=== PATIENT | female | born 1980 | race African-American/Black ===

== ENCOUNTER 2016-09-13 06:30 | Observation (INO) | payer MEDICAID ==
[~2016-09-13] VITALS: Ht 167.6 cm; Wt 80.0 kg
[~2016-09-13 06:30] MED LIST: ALBU0.63 NEB; IBUP800T23 PO; OMEP20TA PO; ZOFR4TAB PO
[2016-09-13 06:31] VITALS: BP 114/67; PULSE 88; RESP 18; TEMP 98.2; O2SAT 96
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
[2016-09-13] MEDS ORDERED: SODIUM CHLORIDE 0.9% FLUSH 10 ML FLUSH IVF PRN ×2 (07:15→08:15)
[2016-09-13] MEDS ORDERED: ASPIRIN 81 MG CHEW TAB PO ONE (07:15)
[2016-09-13] MEDS ORDERED: NITROGLYCERIN 2% OINT 1 GM PACKET TOP ONE (07:15)
[2016-09-13] MEDS ORDERED: NITROGLYCERIN 0.4 MG SL 25 TABS/BTL SL ONE (07:15)
[2016-09-13] MEDS ORDERED: MORPHINE SULFATE 4 MG/ML INJ IV PUSH ONE (07:15)
[2016-09-13] MEDS ORDERED: methylPREDNISolone SOD SUCC 125 MG/2 ML VIAL IVP ONE (07:15)
[2016-09-13 07:23] LABS: AUTOMATED NEUTROPHIL # 3.4 TH/MM3 (1.8-7.7); BASOPHIL % 0.5 % (0.0-2.0); EOSINOPHIL # 0.1 TH/MM3 (0-0.4); EOSINOPHIL % 1.2 % (0.0-4.0); HEMATOCRIT 39.1 % (35.0-46.0); HEMO FLAGS DIFF FINAL; LYMPH % 30.9 % (9.0-44.0); LYMPHOCYTE # 1.7 TH/MM3 (1.0-4.8); MEAN CELL VOLUME 90.6 FL (80.0-100.0); MEAN CORPUSCULAR HEMOGLOBIN 30.3 PG (27.0-34.0); MEAN CORPUSCULAR HGB CONC 33.5 % (32.0-36.0); MONO % 7.8 % (0.0-8.0); NEUT % 59.6 % (16.0-70.0); PLATELET COUNT 107 TH/MM3 (150-450); RED BLOOD COUNT 4.31 MIL/MM3 (4.00-5.30); RED CELL DISTRIBUTION WIDTH 14.9 % (11.6-17.2); WHITE BLOOD COUNT 5.7 TH/MM3 (4.0-11.0)
[2016-09-13] MEDS: RESP: ALBUTEROL 2.5 MG/3 ML NEB (SCH) INH ×2 (07:27→07:28)
[2016-09-13 07:31] VITALS: BP 114/67; PULSE 87; RESP 18; RESP 20; O2SAT 98
[2016-09-13 07:31] LABS: INTERNATIONAL NORMALIZED RATIO 0.9 RATIO; PROTHROMBIN TIME - PATIENT 10.1 SEC (9.8-11.6)
[2016-09-13 07:35] LABS: APTT (PATIENT) 28.8 SEC (24.3-30.1)
[2016-09-13] MEDS ORDERED: cefTRIAXone INJ 1,000 MG in SODIUM CHLORIDE 0.9% INJ 100 ML IV ONE (08:15)
[2016-09-13] MEDS ORDERED: AZITHROMYCIN 250 MG TAB PO ONE (08:15)
[2016-09-13 08:20] LABS: ANION GAP 9 MEQ/L (5-15); AST (GOT) 25 U/L (15-37); BICARBONATE 20.6 MEQ/L (21.0-32.0); BLOOD UREA NITROGEN 11 MG/DL (7-18); CHLORIDE 111 MEQ/L (98-107); GLOMERULAR FILTRATION RATE 97 ML/MIN (>89); MAGNESIUM 1.9 MG/DL (1.5-2.5); SODIUM (NA) 141 MEQ/L (136-145)
--- NOTE | 2016-09-13 08:24 | RADRPT ---
EXAM DATE/TIME: 09/13/2016 07:27 [facility] COMPARISON: CHEST SINGLE AP, January 18, 2016, 16:09. INDICATIONS : Midsternal chest pains, prior heart valve replacement. MEDICAL HISTORY : Myocardial infarction. SURGICAL HISTORY : Valve replacement ENCOUNTER: Initial ACUITY: 1 day PAIN SCORE: 10/10 LOCATION: Bilateral chest FINDINGS: A single portable frontal view of the chest shows a parenchymal consolidation within the right lung b ase. Left lung is clear. No effusions. Heart is normal in size. Median sternotomy wires and prostheti c aortic valve noted. CONCLUSION: 1. Right lower lobe infiltrate. Carlitos Ring Jr., MD on September 13, 2016 at 8:21 Board Certified Radiologist. This report was verified electronically.
[2016-09-13 08:26] LABS: ALKALINE PHOSPHATASE 66 U/L (45-117); ALT (GPT) 19 U/L (10-53); CREATINE KINASE 255 U/L (26-192); TOTAL BILIRUBIN ADULT 0.2 MG/DL (0.2-1.0)
[2016-09-13 08:38] LABS: CKMB 3.7 NG/ML (0.5-3.6)
[2016-09-13 08:49] LABS: AMPHETAMINE, URINE NEG (NEG); BARBITURATES, URINE NEG (NEG); COCAINE, URINE POS (NEG)
[2016-09-13] MEDS ORDERED: SODIUM CHLOR 0.9% 1000 ML INJ 1,000 ML IV SCH (09:37)
[2016-09-13] MEDS ORDERED: SODIUM CHLORIDE 0.9% FLUSH 10 ML FLUSH IV FLUSH PRN (09:45)
[2016-09-13] MEDS ORDERED: NALOXONE HCL 0.4 MG/ML AMP IV PRN (09:45)
[2016-09-13] MEDS ORDERED: ENOXAPARIN SODIUM 40 MG/0.4 ML SYRINGE SQ SCH (09:45)
--- NOTE | 2016-09-13 10:21 | EKG ---
Date Performed: 09/13/2016 Time Performed: 06:31:33 PTAGE: 36 years EKG: Sinus rhythm NONSPECIFIC T-WAVE ABNORMALITY BORDERLINE ECG PREVIOUS TRACING : 01/19/2016 15.10 DOCTOR: Pradip Odom Interpretating Date/Time 09/13/2016 10:18:14
[2016-09-13] MEDS: RESP: ALBUTEROL 2.5 MG/IPRATROPIUM 0.5 MG NEB (SCH) NEB ×2 (10:24→17:01)
[2016-09-13 10:25] VITALS: O2SAT 99
[2016-09-13] MEDS ORDERED: ACETAMINOPHEN 325 MG TAB PO PRN (11:45)
[2016-09-13 12:00] VITALS: BP 121/69; PULSE 90; RESP 18; O2SAT 97
[2016-09-13] MEDS ORDERED: PANTOPRAZOLE SOD 40 MG DELAYED RELEASE TAB PO SCH (12:00)
[2016-09-13 12:01] LABS: REVIEW FLAG FINAL
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
[2016-09-13 13:31] VITALS: BP 115/68; PULSE 95; RESP 18; TEMP 97; O2SAT 100
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
[2016-09-13] MEDS ORDERED: LIDO5DIS35 T-DERMAL (14:47)
[2016-09-13] MEDS ORDERED: LEVO750T33 PO (14:47)
[2016-09-13] MEDS ORDERED: PANT40TA3 PO (14:47)
[2016-09-13] MEDS ORDERED: LIDOCAINE HCL 5% PATCH T-DERMAL SCH (15:00)
[2016-09-13 16:00] VITALS: BP 107/60; PULSE 86; RESP 18; TEMP 96.7; O2SAT 97
[2016-09-13] MEDS ORDERED: SODIUM CHLORIDE 0.9% FLUSH 10 ML FLUSH IV FLUSH SCH (21:00)
[2016-09-13] MEDS ORDERED: predniSONE 20 MG TAB PO SCH (21:00)
[2016-09-13] MEDS ORDERED: REMOVE OLD LIDOCAINE PATCH T-DERMAL SCH (21:00)
[2016-09-14] MEDS ORDERED: cefTRIAXone INJ 1,000 MG in SODIUM CHLORIDE 0.9% INJ 100 ML IV SCH (09:00)
[2016-09-14] MEDS ORDERED: AZITHROMYCIN 250 MG TAB PO SCH (09:00)
[2016-09-14] MEDS ORDERED: INFLUENZA VIRUS VACCINE (QUADRIVALENT) 0.5 ML SYR IM ONE (10:00)
== END 2016-09-13 17:20 | disposition home or self-care (01) ==
LOC: NEPE 06:30 → NEDA 09:39 → NEPGCP 13:06
PROVIDERS: ADMIT Internal Medicine; ATTEND Internal Medicine
DX: R07.89 Other chest pain (principal); K62.5 Hemorrhage of anus and rectum; E11.9 Type 2 diabetes mellitus without complications; Z79.01 Long term (current) use of anticoagulants; I10 Essential (primary) hypertension; J45.909 Unspecified asthma, uncomplicated; Z86.718 Personal history of other venous thrombosis and embolism; Z85.41 Personal history of malignant neoplasm of cervix uteri; F17.200 Nicotine dependence, unspecified, uncomplicated; J18.9 Pneumonia, unspecified organism; Z95.2 Presence of prosthetic heart valve; K21.9 Gastro-esophageal reflux disease without esophagitis; F14.10 Cocaine abuse, uncomplicated; F12.10 Cannabis abuse, uncomplicated; Z91.19 Patient's noncompliance with other medical treatment and regimen; Z88.8 Allergy status to other drugs, medicaments and biological substances
CPT/HCPCS: 71010; 80053; 80307; 82550; 82552; 83735; 83880; 84484; 84703; 85014; 85018; 85025; 85049; 85379; 85610; 85730; 93005; 94150; 94640; 94664; 94667; 96374; 96375; 99285; G0378; J0696; J2270; J2930; J7030; J7613

== ENCOUNTER 2016-12-18 20:52 | Emergency (ER) | payer MEDICAID ==
[~2016-12-18] VITALS: Ht 167.6 cm; Wt 80.0 kg
[~2016-12-18 20:52] MED LIST changes: -IBUP800T23 PO; +LEVO750T33 PO; +LIDO5DIS35 T-DERMAL; +PANT40TA3 PO
[2016-12-18 20:54] VITALS: BP 116/64; PULSE 102; RESP 16; TEMP 98.7; O2SAT 97
[2016-12-18] MEDS ORDERED: SODIUM CHLOR 0.9% 1000 ML INJ 1,000 ML IV SCH (22:03)
[2016-12-18] MEDS ORDERED: ONDANSETRON HCL 4 MG/2 ML VIAL IVP ONE (22:15)
[2016-12-18] MEDS ORDERED: MORPHINE SULFATE 8 MG/ML INJ IV PUSH ONE (22:15)
[2016-12-18] MEDS ORDERED: SODIUM CHLORIDE 0.9% FLUSH 10 ML FLUSH IV FLUSH PRN (22:15)
[2016-12-18 22:32] VITALS: O2SAT 94
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
[2016-12-18 22:58] LABS: BASOPHIL % 0.2 % (0.0-2.0); EOSINOPHIL # 0.1 TH/MM3 (0-0.4); EOSINOPHIL % 2.2 % (0.0-4.0); HEMATOCRIT 41.1 % (35.0-46.0); HEMO FLAGS DIFF FINAL; LYMPH % 37.9 % (9.0-44.0); LYMPHOCYTE # 2.3 TH/MM3 (1.0-4.8); MEAN CELL VOLUME 90.5 FL (80.0-100.0); MEAN CORPUSCULAR HEMOGLOBIN 29.8 PG (27.0-34.0); MEAN CORPUSCULAR HGB CONC 32.9 % (32.0-36.0); MONO % 10.1 % (0.0-8.0); NEUT % 49.6 % (16.0-70.0); PLATELET COUNT 132 TH/MM3 (150-450); RED BLOOD COUNT 4.55 MIL/MM3 (4.00-5.30); RED CELL DISTRIBUTION WIDTH 14.1 % (11.6-17.2)
[2016-12-18 23:15] LABS: ALT (GPT) 17 U/L (10-53)
[2016-12-18 23:17] LABS: ALKALINE PHOSPHATASE 82 U/L (45-117); ANION GAP 6 MEQ/L (5-15); AST (GOT) 26 U/L (15-37); BICARBONATE 27.3 MEQ/L (21.0-32.0); BLOOD UREA NITROGEN 18 MG/DL (7-18); CHLORIDE 106 MEQ/L (98-107); GLOMERULAR FILTRATION RATE 65 ML/MIN (>89); POTASSIUM 3.9 MEQ/L (3.5-5.1); SODIUM (NA) 139 MEQ/L (136-145); TOTAL BILIRUBIN ADULT 0.2 MG/DL (0.2-1.0)
[2016-12-18 23:25] LABS: BLOOD, URINE MOD (NEG); GLUCOSE,URINE NEG (NEG); KETONE, URINE NEG (NEG); NITRITE,URINE NEG (NEG); SQUAMOUS EPITHELIAL CELL URINE 5 /hpf (0-5); URINE COLOR YELLOW (YELLW/STRAW)
[2016-12-18 23:35] LABS: COMMENT (UR) CULT NOT INDICATED; CULTURE IF INDICATED CULT NOT INDICATED
[2016-12-19] MEDS ORDERED: MORPHINE SULFATE 8 MG/ML INJ IV PUSH ONE (00:15)
[2016-12-19] MEDS ORDERED: HYDR-3533 PO (00:44)
[2016-12-19] MEDS ORDERED: DEXAMETHASONE SOD PHOS 4 MG/ML VIAL IV PUSH ONE (00:45)
== END 2016-12-19 01:41 | disposition home or self-care (01) ==
LOC: NEPD 20:52
DX: R10.9 Unspecified abdominal pain (principal); M25.50 Pain in unspecified joint
CPT/HCPCS: 80053; 81001; 85025; 96361; 96374; 96375; 96376; 99284; J1100; J2270; J2405; J7030

== ENCOUNTER 2017-01-05 10:16 | Emergency (ER) | payer MEDICAID ==
[~2017-01-05] VITALS: Ht 167.6 cm; Wt 80.0 kg
[~2017-01-05 10:16] MED LIST changes: +HYDR-3533 PO; -LEVO750T33 PO; -LIDO5DIS35 T-DERMAL; -PANT40TA3 PO
[2017-01-05 10:21] VITALS: BP 115/77; PULSE 114; RESP 17; TEMP 98.2; O2SAT 99
[2017-01-05] MEDS ORDERED: HEART RATE MED (10:52)
[2017-01-05] MEDS ORDERED: DEXAMETHASONE SOD PHOS 4 MG/ML VIAL IM ONE (11:00)
[2017-01-05] MEDS ORDERED: IBUPROFEN 600 MG TAB PO ONE (11:00)
[2017-01-05] MEDS ORDERED: SODIUM CHLORIDE 0.9% FLUSH 10 ML FLUSH IVF PRN (11:00)
[2017-01-05] MEDS: RESP: ALBUTEROL 2.5 MG/IPRATROPIUM 0.5 MG NEB (SCH) INH (11:05)
[2017-01-05 11:22] LABS: BACTERIA, URINE FEW /hpf; BLOOD, URINE MOD (NEG); COMMENT (UR) CULT NOT INDICATED; CULTURE IF INDICATED CULT NOT INDICATED; GLUCOSE,URINE NEG (NEG); KETONE, URINE NEG (NEG); MUCUS URINE FEW /lpf (OCC); NITRITE,URINE NEG (NEG); SQUAMOUS EPITHELIAL CELL URINE 14 /hpf (0-5); URINE COLOR YELLOW (YELLW/STRAW)
[2017-01-05 11:57] VITALS: PULSE 103; RESP 18; O2SAT 99
--- NOTE | 2017-01-05 12:15 | RADRPT ---
EXAM DATE/TIME: 01/05/2017 12:10 [place] COMPARISON: No previous studies available for comparison. INDICATIONS : Short of breath. Pt. states she has been coughing up phlegm. MEDICAL HISTORY : Myocardial infarction. Asthma. SURGICAL HISTORY : Aortic valve replaced. ENCOUNTER: Initial ACUITY: 1 week PAIN SCORE: 0/10 LOCATION: Bilateral chest FINDINGS: PA and lateral views of the chest demonstrate the lungs to be symmetrically aerated without evidence of mass, infiltrate or effusion. Sternal wires evident. Previous aortic valve replacement. The car diomediastinal contours are unremarkable. Osseous structures are intact. CONCLUSION: No acute disease. Tyrese De Guzman MD FACR on January 05, 2017 at 12:13 Board Certified Radiologist. This report was verified electronically.
--- NOTE | 2017-01-05 12:26 | PD ---
Physical Exam Date Seen by Provider: Jan 05, 2017 Time Seen by Provider: 12:09 Narrative I was asked by Dr Mcwilliams to perform a pelvic exam on the patient. Please see his documentation for full history and physical. GENITOURINARY: Normal external genitalia without lesions or erythema. Vaginal vault without blood but with a moderate amount of milk colored frothy drainage. Cervical os was closed with the drainage. No cervical motion tenderness. Uterus nontender and nonenlarged. Bilateral adnexa nontender without masses. RECTAL EXAM: No masses or tenderness, no stool or blood noted in rectal vault. Data Data Last Documented VS Vital Signs Date Time Temp Pulse Resp B/P (MAP) Pulse Ox O2 Delivery O2 Flow Rate FiO2 01/05/17 11:57 103 18 99 Room Air 01/05/17 10:21 98.2 Orders Orders Oximetry (01/05/17 10:49) Chest, Pa & Lat (01/05/17 10:49) Sodium Chloride 0.9% Flush (Ns Flush) (01/05/17 11:00) Albuterol-Ipratropium Neb (Duoneb Neb) (01/05/17 11:00) Urinalysis - C+S If Indicated (01/05/17 10:49) Ibuprofen (Motrin) (01/05/17 11:00) Ed Urine Pregnancytest Poc (01/05/17 10:52) Gc And Chlamydia Pcr (01/05/17 10:54) Wet Prep Profile (01/05/17 10:54) Dexamethasone Inj (Decadron Inj) (01/05/17 11:00) Labs Laboratory Tests Test 01/05/17 10:55 01/05/17 11:30 Urine Color YELLOW Urine Turbidity CLOUDY Urine pH 6.0 Urine Specific [place] 1.022 Urine Protein 300 mg/dL Urine Glucose (UA) NEG mg/dL Urine Ketones NEG mg/dL Urine Occult Blood MOD Urine Nitrite NEG Urine Bilirubin NEG Urine Urobilinogen 2.0 MG/DL Urine Leukocyte Esterase NEG Urine RBC 19 /hpf Urine WBC 1 /hpf Urine Squamous Epithelial Cells 14 /hpf Urine Bacteria FEW /hpf Urine Mucus FEW /lpf Microscopic Urinalysis Comment CULT NOT INDICATED Clue Cells (Wet Prep) NONE SEEN Vaginal Trichomonas (Wet Prep) NONE SEEN Vaginal Yeast (Wet Prep) NONE SEEN MDM Medical Record Reviewed: Yes Supervised Visit with [facility]UM[facility]: Adalgisa Lui Jan 05, 2017 12:26
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
[2017-01-05] MEDS ORDERED: METR-1 PO (13:08)
[2017-01-05] MEDS ORDERED: IBUP-232 PO (13:09)
[2017-01-05 13:21] VITALS: BP 120/78
[2017-01-05 13:58] LABS: CHLAMYDIA PCR NOT DETECTED (NOT DETECT); NEISSERIA PCR NOT DETECTED (NOT DETECT)
== END 2017-01-05 13:32 | disposition home or self-care (01) ==
LOC: NEPE 10:16
DX: J45.909 Unspecified asthma, uncomplicated (principal); R10.9 Unspecified abdominal pain; Z72.0 Tobacco use
CPT/HCPCS: 71020; 81001; 84703; 87210; 87491; 87591; 94640; 94664; 96372; 99285; J1100

== ENCOUNTER 2017-01-23 18:52 | Emergency (ER) | payer MEDICAID ==
[~2017-01-23 18:52] MED LIST changes: +HEART RATE MED; -HYDR-3533 PO; +IBUP-232 PO; +METR-1 PO; -OMEP20TA PO; -ZOFR4TAB PO
[2017-01-23 19:06] VITALS: BP 180/81; PULSE 84; RESP 20; O2SAT 97
[2017-01-23] MEDS ORDERED: MORPHINE SULFATE 4 MG/ML INJ IV PUSH ONE (19:30)
[2017-01-23] MEDS ORDERED: SODIUM CHLORIDE 0.9% FLUSH 10 ML FLUSH IVF PRN (19:30)
[2017-01-23] MEDS ORDERED: ONDANSETRON HCL 4 MG/2 ML VIAL IV PUSH ONE (19:30)
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
--- NOTE | 2017-01-23 20:17 | RADRPT ---
EXAM DATE/TIME: 01/23/2017 19:42 [facility] COMPARISON: No previous studies available for comparison. INDICATIONS : Short of breath. MEDICAL HISTORY : None. SURGICAL HISTORY : CABG. ENCOUNTER: Initial ACUITY: 1 day PAIN SCORE: 0/10 LOCATION: Bilateral chest FINDINGS: A single view of the chest demonstrates the lungs to be symmetrically aerated without evidence of mas s, infiltrate or effusion. The cardiomediastinal contours are unremarkable. Osseous structures are intact. Previous median sternotomy again noted. CONCLUSION: No evidence of acute cardiopulmonary disease. Abelardo Melendrez MD on January 23, 2017 at 20:15 Board Certified Radiologist. This report was verified electronically.
[2017-01-23 21:57] LABS: BLOOD, URINE SMALL (NEG); COMMENT (UR) CULT NOT INDICATED; CULTURE IF INDICATED CULT NOT INDICATED; GLUCOSE,URINE NEG (NEG); KETONE, URINE NEG (NEG); NITRITE,URINE NEG (NEG); SQUAMOUS EPITHELIAL CELL URINE 3 /hpf (0-5); URINE COLOR LIGHT-YELLOW (YELLW/STRAW)
[2017-01-23 21:59] LABS: AUTOMATED NEUTROPHIL # 3.5 TH/MM3 (1.8-7.7); BASOPHIL # 0.1 TH/MM3 (0-0.2); BASOPHIL % 0.9 % (0.0-2.0); EOSINOPHIL # 0.1 TH/MM3 (0-0.4); EOSINOPHIL % 1.1 % (0.0-4.0); HEMATOCRIT 43.3 % (35.0-46.0); LYMPH % 32.3 % (9.0-44.0); MEAN CELL VOLUME 91.5 FL (80.0-100.0); MEAN CORPUSCULAR HEMOGLOBIN 30.3 PG (27.0-34.0); MEAN CORPUSCULAR HGB CONC 33.1 % (32.0-36.0); MONO % 8.6 % (0.0-8.0); NEUT % 57.1 % (16.0-70.0); PLATELET COUNT 141 TH/MM3 (150-450); RED BLOOD COUNT 4.73 MIL/MM3 (4.00-5.30); RED CELL DISTRIBUTION WIDTH 15.7 % (11.6-17.2); WHITE BLOOD COUNT 6.1 TH/MM3 (4.0-11.0)
[2017-01-23 22:09] LABS: INTERNATIONAL NORMALIZED RATIO 0.9 RATIO; PROTHROMBIN TIME - PATIENT 9.8 SEC (9.8-11.6)
[2017-01-23 22:10] LABS: HEMO FLAGS AUTO DIFF
[2017-01-23 22:15] LABS: CREATINE KINASE 195 U/L (26-192)
[2017-01-23 22:28] LABS: CKMB 2.4 NG/ML (0.5-3.6)
[2017-01-23 22:33] LABS: ANION GAP 8 MEQ/L (5-15); BICARBONATE 22.6 MEQ/L (21.0-32.0); BLOOD UREA NITROGEN 15 MG/DL (7-18); CHLORIDE 107 MEQ/L (98-107); GLOMERULAR FILTRATION RATE 92 ML/MIN (>89); MAGNESIUM 1.8 MG/DL (1.5-2.5); POTASSIUM 3.8 MEQ/L (3.5-5.1); SODIUM (NA) 138 MEQ/L (136-145)
[2017-01-23] MEDS ORDERED: IBUP-232 PO (22:37)
[2017-01-23 22:59] LABS: PLATELET ESTIMATE SMEAR LOW (NORMAL); PLATELET MORPHOLOGY ENLARGED (NORMAL)
[2017-01-23 23:00] LABS: SCAN/DIFF AUTO DIFF CONFIRMED
[2017-01-23 23:09] VITALS: TEMP 98.2
[2017-01-23] MEDS ORDERED: IBUPROFEN 600 MG TAB PO ONE (23:15)
[2017-01-23 23:30] VITALS: TEMP 98.6
--- NOTE | 2017-01-24 14:53 | EKG ---
Date Performed: 01/23/2017 Time Performed: 22:28:13 PTAGE: 36 years EKG: Sinus rhythm NONSPECIFIC T-WAVE ABNORMALITY BORDERLINE ECG PREVIOUS TRACING : 01/23/2017 19.04 Compared to prior tracing no significant change DOCTOR: Kelly Tariq Interpretating Date/Time 01/24/2017 14:52:31
--- NOTE | 2017-01-24 15:07 | EKG ---
Date Performed: 01/23/2017 Time Performed: 19:04:13 PTAGE: 36 years EKG: Sinus rhythm NONSPECIFIC T-WAVE ABNORMALITY BORDERLINE ECG PREVIOUS TRACING : 09/13/2016 06.31 Compared to prior tracing no significant change DOCTOR: Kelly Tariq Interpretating Date/Time 01/24/2017 15:05:25
== END 2017-01-23 23:35 | disposition home or self-care (01) ==
LOC: NEPC 18:52
DX: M25.50 Pain in unspecified joint (principal); R07.9 Chest pain, unspecified; R51 Headache
CPT/HCPCS: 71010; 80048; 81001; 82550; 82552; 83735; 84484; 84703; 85025; 85610; 85730; 93005; 96374; 96375; 99285; J2270; J2405

== ENCOUNTER 2017-08-28 18:29 | Observation (INO) | payer SELFPAY ==
[~2017-08-28] VITALS: Ht 167.6 cm; Wt 72.0 kg
[2017-08-28 18:33] VITALS: BP 136/86; PULSE 96; RESP 18; TEMP 98.2; O2SAT 99
[2017-08-28 18:45] VITALS: BP 152/83; PULSE 89; RESP 19; O2SAT 99
[2017-08-28] MEDS ORDERED: SODIUM CHLOR 0.9% 1000 ML INJ 1,000 ML IV SCH (18:51)
[2017-08-28] MEDS ORDERED: ONDANSETRON HCL 4 MG/2 ML VIAL IVP ONE (19:00)
[2017-08-28] MEDS ORDERED: SODIUM CHLORIDE 0.9% FLUSH 10 ML FLUSH IV FLUSH PRN (19:00)
[2017-08-28] MEDS ORDERED: ACETAMINOPHEN 325 MG TAB PO ONE (19:00)
[2017-08-28] MEDS ORDERED: ASPIRIN 81 MG CHEW TAB PO ONE (19:00)
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
--- NOTE | 2017-08-28 19:49 | RADRPT ---
EXAM DATE/TIME: 08/28/2017 19:17 [facility] COMPARISON: CHEST PA & LAT, January 05, 2017, 12:10. INDICATIONS : Chest pain. MEDICAL HISTORY : Hypertension. Diabetes mellitus type 2. Cervical cancer; Ovarian cysts; SURGICAL HISTORY : Heart valve replacement; Right oophorectomy. ENCOUNTER: Initial ACUITY: 1 week PAIN SCORE: 10/10 LOCATION: Bilateral chest FINDINGS: PA and lateral views of the chest demonstrate the lungs to be symmetrically aerated without evidence of mass, infiltrate or effusion. The cardiomediastinal contours are unremarkable except sternotomy a nd aortic valve replacement. Osseous structures are intact. CONCLUSION: 1. Postoperative median sternotomy and aortic valve replacement. No acute findings. Miguel A Nair MD on August 28, 2017 at 19:46 Board Certified Radiologist. This report was verified electronically.
[2017-08-28 19:58] LABS: AUTOMATED NEUTROPHIL # 2.6 TH/MM3 (1.8-7.7); BASOPHIL % 0.5 % (0.0-2.0); EOSINOPHIL # 0.1 TH/MM3 (0-0.4); EOSINOPHIL % 1.2 % (0.0-4.0); HEMATOCRIT 41.5 % (35.0-46.0); HEMOGLOBIN 13.7 GM/DL (11.6-15.3); LYMPH % 35.3 % (9.0-44.0); LYMPHOCYTE # 1.7 TH/MM3 (1.0-4.8); MEAN CELL VOLUME 88.8 FL (80.0-100.0); MEAN CORPUSCULAR HEMOGLOBIN 29.3 PG (27.0-34.0); MEAN PLATELET VOLUME 9.3 FL (7.0-11.0); MONO % 9.3 % (0.0-8.0); MONOCYTE # 0.5 TH/MM3 (0-0.9); NEUT % 53.7 % (16.0-70.0); PLATELET COUNT 165 TH/MM3 (150-450); RED BLOOD COUNT 4.67 MIL/MM3 (4.00-5.30); RED CELL DISTRIBUTION WIDTH 15.8 % (11.6-17.2); WHITE BLOOD COUNT 4.9 TH/MM3 (4.0-11.0)
[2017-08-28 20:10] LABS: PROTHROMBIN TIME - PATIENT 10.3 SEC (9.8-11.6)
[2017-08-28 20:11] LABS: ALBUMIN 3.3 GM/DL (3.4-5.0); ALT (GPT) 18 U/L (10-53); AST (GOT) 22 U/L (15-37); BICARBONATE 24.4 MEQ/L (21.0-32.0); BLOOD UREA NITROGEN 6 MG/DL (7-18); CALCIUM 8.9 MG/DL (8.5-10.1); CHLORIDE 107 MEQ/L (98-107); CREATININE 0.89 MG/DL (0.50-1.00); GLOMERULAR FILTRATION RATE 85 ML/MIN (>89); GLUCOSE,RANDOM 72 MG/DL (74-106); MAGNESIUM 1.7 MG/DL (1.5-2.5); SODIUM (NA) 139 MEQ/L (136-145)
[2017-08-28 20:15] LABS: ALKALINE PHOSPHATASE 77 U/L (45-117); TOTAL BILIRUBIN ADULT 0.3 MG/DL (0.2-1.0); TOTAL PROTEIN 8.2 GM/DL (6.4-8.2); TROPONIN I LESS THAN 0.02 NG/ML (0.02-0.05)
[2017-08-28 21:15] VITALS: BP 158/76; PULSE 76; RESP 16; O2SAT 98
[2017-08-28 21:21] VITALS: BP 144/59; PULSE 90; RESP 16; O2SAT 98
[2017-08-28] MEDS ORDERED: IOHEXOL 350 MG/ML 10 ML VIAL (for RAD DIAG) IVCONTRAST ONE (21:42)
[2017-08-28] MEDS ORDERED: ASPIRIN 81 MG CHEW TAB CHEW ONE (21:45)
[2017-08-28] MEDS ORDERED: ONDANSETRON HCL 4 MG/2 ML VIAL IV PUSH PRN (21:45)
[2017-08-28] MEDS ORDERED: ACETAMINOPHEN 500 MG CPLT PO PRN (21:45)
[2017-08-28] MEDS ORDERED: MORPHINE SULFATE 2 MG/ML SYRINGE IV PUSH ONE (21:45)
[2017-08-28] MEDS ORDERED: MORPHINE SULFATE 4 MG/ML INJ ONE (21:46)
[2017-08-28 22:53] LABS: TROPONIN I LESS THAN 0.02 NG/ML (0.02-0.05)
[2017-08-28 23:09] VITALS: BP 124/58; PULSE 84; RESP 18; TEMP 97.8; O2SAT 97
--- NOTE | 2017-08-28 23:55 | PD ---
Physical Exam Narrative Please see the PA note for full history and physical. Briefly patient presents of chest pain that started approximately 1 PM this afternoon pain is described as being on the left side, constant, nonradiating, 10 out of 10, alleviated with sleep, no aggravating factors she denies fever ,but reports chills, nausea , but no vomiting. She reports substance abuse and family history of coronary artery disease. She also reports a cracked tooth and tooth pain. On exam she is afebrile vital signs are stable. She does have a cracked,right lower molar without any fluctuance noted at the gum. Chest wall was tender to palpation. Cardiac enzymes were negative, chest x-ray was negative for any acute, EKG showed no ST elevation patient was given aspirin, acetaminophen, IV morphine for pain. D-dimer was within normal limits. Patient was admitted to chest pain also for the evaluation and management. Data Data Last Documented VS Vital Signs Date Time Temp Pulse Resp B/P (MAP) Pulse Ox O2 Delivery O2 Flow Rate FiO2 08/28/17 21:21 90 16 144/59 (87) 98 Room Air 08/28/17 18:33 98.2 Orders Orders Electrocardiogram (08/28/17 18:51) Ckmb (Isoenzyme) Profile (08/28/17 18:51) Complete Blood Count With Diff (08/28/17 18:51) Comprehensive Metabolic Panel (08/28/17 18:51) Magnesium (Mg) (08/28/17 18:51) Prothrombin Time / Inr (Pt) (08/28/17 18:51) Act Partial Throm Time (Ptt) (08/28/17 18:51) Troponin I (08/28/17 18:51) Lipase (08/28/17 18:51) Ecg Monitoring (08/28/17 18:51) Bilateral Bp Monitoring (08/28/17 18:51) Iv Access Insert/Monitor (08/28/17 18:51) Oximetry (08/28/17 18:51) Oxygen Administration (08/28/17 18:51) Aspirin Chew (Aspirin Chew) (08/28/17 19:00) Chest, Pa & Lat (08/28/17 18:51) Ondansetron Inj (Zofran Inj) (08/28/17 19:00) Sodium Chlor 0.9% 1000 Ml Inj (Ns 1000 M (08/28/17 18:51) Sodium Chloride 0.9% Flush (Ns Flush) (08/28/17 19:00) Acetaminophen (Tylenol) (08/28/17 19:00) Ed Urine Pregnancytest Poc (08/28/17 19:28) D-Dimer (08/28/17 20:03) CKMB (08/28/17 19:20) CKMB% (08/28/17 19:20) Morphine Inj (Morphine Inj) (08/28/17 21:45) Aspirin Chew (Aspirin Chew) (08/28/17 21:45) Activity Bed Rest With Brp (08/28/17 21:37) Vital Signs (Adult) Q4H (08/28/17 21:37) Cardiac Rhythm .As Directed (08/28/17 21:37) Notify Dr: Other .PRN (08/28/17 21:37) Notify DrBert Parameters (08/28/17 21:37) Resp Oxygen Nasal Cannula (08/28/17 ) Ckmb (Isoenzyme) Profile (08/28/17 22:20) Ckmb (Isoenzyme) Profile (08/29/17 01:20) Troponin I (08/28/17 22:20) Troponin I (08/29/17 01:20) Electrocardiogram (08/28/17 22:20) Electrocardiogram (08/29/17 01:20) ^ Obtain (08/28/17 21:37) Acetaminophen (Tylenol) (08/28/17 21:45) Ondansetron Inj (Zofran Inj) (08/28/17 21:45) Administrative Asst / Telemetry OSVALDO.Q8H (08/28/17 21:37) Admit Order (Ed Use Only) (08/28/17 21:37) CKMB (08/28/17 21:55) CKMB% (08/28/17 21:55) Labs Laboratory Tests Test 08/28/17 19:20 White Blood Count 4.9 TH/MM3 Red Blood Count 4.67 MIL/MM3 Hemoglobin 13.7 GM/DL Hematocrit 41.5 % Mean Corpuscular Volume 88.8 FL Mean Corpuscular Hemoglobin 29.3 PG Mean Corpuscular Hemoglobin Concent 33.0 % Red Cell Distribution Width 15.8 % Platelet Count 165 TH/MM3 Mean Platelet Volume 9.3 FL Neutrophils (%) (Auto) 53.7 % Lymphocytes (%) (Auto) 35.3 % Monocytes (%) (Auto) 9.3 % Eosinophils (%) (Auto) 1.2 % Basophils (%) (Auto) 0.5 % Neutrophils # (Auto) 2.6 TH/MM3 Lymphocytes # (Auto) 1.7 TH/MM3 Monocytes # (Auto) 0.5 TH/MM3 Eosinophils # (Auto) 0.1 TH/MM3 Basophils # (Auto) 0.0 TH/MM3 CBC Comment DIFF FINAL Differential Comment Prothrombin Time 10.3 SEC Prothromb Time International Ratio 1.0 RATIO Activated Partial Thromboplast Time 27.5 SEC D-Dimer Quantitative (PE/DVT) 0.21 MG/L FEU Blood Urea Nitrogen 6 MG/DL Creatinine 0.89 MG/DL Random Glucose 72 MG/DL Total Protein 8.2 GM/DL Albumin 3.3 GM/DL Calcium Level 8.9 MG/DL Magnesium Level 1.7 MG/DL Alkaline Phosphatase 77 U/L Aspartate Amino Transf (AST/SGOT) 22 U/L Alanine Aminotransferase (ALT/SGPT) 18 U/L Total Bilirubin 0.3 MG/DL Sodium Level 139 MEQ/L Potassium Level 3.6 MEQ/L Chloride Level 107 MEQ/L Carbon Dioxide Level 24.4 MEQ/L Anion Gap 8 MEQ/L Estimat Glomerular Filtration Rate 85 ML/MIN Total Creatine Kinase 183 U/L Creatine Kinase MB 2.4 NG/ML Troponin I LESS THAN 0.02 NG/ML Lipase 67 U/L MDM Supervised Visit with [facility]: Yes Diagnosis Primary Impression: Atypical chest pain Admitting Information Admitting Physician Requests: Observation Condition: Stable Kell Jeong MD August 28, 2017 23:55
[2017-08-29] VITALS (9 sets, daily range): BP systolic 108–137; BP diastolic 57–82; PULSE 71–88; RESP 16–18; TEMP 97.9–98.6; O2SAT 92–98
[2017-08-29 01:51] LABS: TROPONIN I LESS THAN 0.02 NG/ML (0.02-0.05)
--- NOTE | 2017-08-29 11:13 | HHI.HP ---
[facility] Primary Care Physician Abelardo Carson MD Chief Complaint Chest pain History of Present Illness This is a 37-year-old female that presents to ED via private vehicle with history of endocarditis, aortic valve replacement 2015 and endocarditis a year ago while in [place] and was hospitalized for 9 months at that visit. States she returned from [place] 2 weeks ago and began having a burning sensation across her chest 2 days ago. It was constantly there for about 16 hours with shortness of breath and nausea. No diaphoresis. Found nothing to worsen or improve. Pain is rated as a 10 out of 10. Patient stops me several times during this interview to explain to me that she has a right lower dental pain and thinks she has an abscess. States she had a fever a week ago. 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 Followed by cardiology, states she sees Dr. Anthony and was last seen about 8 months ago. States she had a heart catheterization prior to her aortic valve replacement and that she was not told of any blockages. Currently denies chest discomfort. Review of Systems General: States she had a fever 1 week ago. Patient denies chills. HEENT: Complains of right lower dental pain. Patient denies headache, sore throat, difficulty swallowing. Cardiovascular: Has the chest discomfort as mentioned above. Denies sensation of heart beating rapidly or irregularly. No syncope. Denies diaphoresis. Respiratory: She was short of breath. Denies inspirational chest discomfort. Denies coughing wheezing or hemoptysis. GI: She was nauseous. Patient denies vomiting, diarrhea, abdominal pain, bloody stools. Musculoskeletal: Patient denies joint pain or edema. Denies calf pain or edema. Neurovascular: Patient denies numbness, tingling, weakness in extremities. Denies headache. Endocrine: Denies polyuria and polydipsia. Hematologic: Denies easy bruising. Skin: Denies rash or itching. Past Family Social History Allergies: Coded Allergies: enoxaparin (Unverified Allergy, Severe, 08/28/17) KIDNEY FAILURE/BLEEDING heparin (porcine) (Unverified Allergy, Severe, 08/28/17) KIDNEY FAILURE/BLEEDING Past Medical History Endocarditis in 2014, aortic valve replacement 2014, endocarditis in 2017 in [place] hospitalized for 9 months. Tobacco abuse, polysubstance abuse. Denies hypertension, hyperlipidemia, diabetes, and CAD. Past Surgical History Aortic valve replacement 2015. Cardiac catheterization 2014 and states there were no blockages. Reported Medications Reported Meds & Active Scripts Active Ibuprofen 600 Mg Tab 600 Mg PO Q8H PRN Flagyl (Metronidazole) 500 Mg Tab 500 Mg PO BID Reported [Heart Rate Med] Albuterol Neb (Albuterol Sulfate) 0.63 Mg/3 Ml Neb 0.63 Mg NEB Q3D PRN Active Ordered Medications Current Medications Medications (Trade) Dose Ordered Sig/Malinda Route Start Time Stop Time Status Last Admin (NS Flush) 2 ml UNSCH PRN IV FLUSH 08/28/17 19:00 (Tylenol) 500 mg Q4H PRN PO 08/28/17 21:45 08/29/17 01:04 (Zofran Inj) 4 mg Q6H PRN IV PUSH 08/28/17 21:45 Family History Denies family history of CAD. Social History Smokes 1 pack a series daily. Smokes marijuana 9 uses also cocaine. States last time using marijuana cocaine was 4 days ago. States she has beer. Physical Exam Vital Signs Vital Signs Date Time Temp Pulse Resp B/P (MAP) Pulse Ox O2 Delivery O2 Flow Rate FiO2 08/29/17 07:08 97.9 76 18 113/78 (90) 97 08/29/17 05:08 21 08/29/17 02:04 15 08/29/17 01:59 79 08/29/17 01:29 98.1 88 18 108/57 (74) 92 08/28/17 23:09 97.8 84 18 124/58 (80) 97 08/28/17 21:21 90 16 144/59 (87) 98 Room Air 08/28/17 18:48 99 Room Air 08/28/17 18:45 89 19 152/83 (106) 99 Room Air 08/28/17 18:33 98.2 96 18 136/86 (103) 99 Physical Exam GENERAL: This is a well-nourished, well-developed patient, in no apparent distress. Patient speaks in clear complete sentences. Patient is pleasant. HEENT: THERE IS RT LOWER DENTAL PAIN WITH SWELLING OF THE GUMLINE OF TOOTH NUMBER 32. Head is atraumatic and normocephalic. Neck is supple without lymphadenopathy and trachea is midline. No JVD or carotid bruits. CARDIOVASCULAR: Grade 3 systolic murmur right sternal border radiating to neck. Regular rate and rhythm without gallops or rubs. RESPIRATORY: Clear to auscultation. Breath sounds equal bilaterally. No wheezes , rales, or rhonchi. Chest wall is tender. No use of accessory muscles. GASTROINTESTINAL: Abdomen is nontender, nondistended. Abdomen soft. No obvious pulsatile mass or bruit. No CVA tenderness. Strong femoral pulses bilaterally. Normal bowel sounds in all quadrants. MUSCULOSKELETAL: Patient is moving upper and lower extremities freely. No calf tenderness or edema, no Homans sign. Strong pulses in upper and lower extremities. NEUROLOGICAL: Patient is alert and oriented. Cranial nerves 2-12 are grossly intact. No focal deficits and speech is clear. SKIN: No rash and turgor is normal. Laboratory Laboratory Tests Test 08/28/17 19:20 08/28/17 21:55 08/29/17 01:11 White Blood Count 4.9 Red Blood Count 4.67 Hemoglobin 13.7 Hematocrit 41.5 Mean Corpuscular Volume 88.8 Mean Corpuscular Hemoglobin 29.3 Mean Corpuscular Hemoglobin Concent 33.0 Red Cell Distribution Width 15.8 Platelet Count 165 Mean Platelet Volume 9.3 Neutrophils (%) (Auto) 53.7 Lymphocytes (%) (Auto) 35.3 Monocytes (%) (Auto) 9.3 Eosinophils (%) (Auto) 1.2 Basophils (%) (Auto) 0.5 Neutrophils # (Auto) 2.6 Lymphocytes # (Auto) 1.7 Monocytes # (Auto) 0.5 Eosinophils # (Auto) 0.1 Basophils # (Auto) 0.0 CBC Comment DIFF FINAL Differential Comment Prothrombin Time 10.3 Prothromb Time International Ratio 1.0 Activated Partial Thromboplast Time 27.5 D-Dimer Quantitative (PE/DVT) 0.21 Blood Urea Nitrogen 6 Creatinine 0.89 Random Glucose 72 Total Protein 8.2 Albumin 3.3 Calcium Level 8.9 Magnesium Level 1.7 Alkaline Phosphatase 77 Aspartate Amino Transf (AST/SGOT) 22 Alanine Aminotransferase (ALT/SGPT) 18 Total Bilirubin 0.3 Sodium Level 139 Potassium Level 3.6 Chloride Level 107 Carbon Dioxide Level 24.4 Anion Gap 8 Estimat Glomerular Filtration Rate 85 Total Creatine Kinase 183 148 134 Creatine Kinase MB 2.4 2.1 2.0 Troponin I LESS THAN 0.02 LESS THAN 0.02 LESS THAN 0.02 Lipase 67 Result Diagram: 08/28/17191908/28/171919 Imaging Last 48 hours Impressions Chest X-Ray 08/28/17 1851 Signed Impressions: Service Date/Time: Monday, August 28, 2017 19:17 - CONCLUSION: 1. Postoperative median sternotomy and aortic valve replacement. No acute findings. Miguel A Nair MD Course EKGS are SR WITHOUT ST CHANGES. Caprini VTE Risk Assessment Caprini VTE Risk Assessment: No/Low Risk (score <= 1) Caprini Risk Assessment Model Point Value = 1 Point Value = 2 Point Value = 3 Point Value = 5 Age 41-60 Minor surgery BMI > 25 kg/m2 Swollen legs Varicose veins or History of unexplained or recurrent spontaneous Oral contraceptives or hormone replacement Sepsis (< 1 month) Serious lung disease, including pneumonia (< 1 month) Abnormal pulmonary function Acute myocardial infarction Congestive heart failure (< 1 month) History of inflammatory bowel disease Medical patient at bed rest Age 61-74 Arthroscopic surgery Major open surgery (> 45 min) Laparoscopic surgery (> 45 min) Malignancy Confined to bed (> 72 hours) Immobilizing plaster cast Central venous access Age >= 75 History of VTE Family history of VTE Factor V Leiden Prothrombin [id number] Lupus anticoagulant Anticardiolipin antibodies Elevated serum homocysteine Heparin-induced thrombocytopenia Other congenital or acquired thrombophilia Stroke (< 1 month) Elective arthroplasty Hip, pelvis, or leg fracture Acute spinal cord injury (< 1 month) Prophylaxis Regimen Total Risk Factor Score Risk Level Prophylaxis Regimen 0-1 Low Early ambulation 2 Moderate Order ONE of the following: *Sequential Compression Device (SCD) *Heparin 5000 units SQ BID 3-4 Higher Order ONE of the following medications: *Heparin 5000 units SQ TID *Enoxaparin/Lovenox 40 mg SQ daily (WT < 150 kg, CrCl > 30 mL/min) *Enoxaparin/Lovenox 30 mg SQ daily (WT < 150 kg, CrCl > 10-29 mL/min) *Enoxaparin/Lovenox 30 mg SQ BID (WT < 150 kg, CrCl > 30 mL/min) AND/OR *Sequential Compression Device (SCD) 5 or more Highest Order ONE of the following medications: *Heparin 5000 units SQ TID (Preferred with Epidurals) *Enoxaparin/Lovenox 40 mg SQ daily (WT < 150 kg, CrCl > 30 mL/min) *Enoxaparin/Lovenox 30 mg SQ daily (WT < 150 kg, CrCl > 10-29 mL/min) *Enoxaparin/Lovenox 30 mg SQ BID (WT < 150 kg, CrCl > 30 mL/min) AND *Sequential Compression Device (SCD) Assessment and Plan Assessment and Plan * CHEST PAIN: Patient has had serial cardiac and enzymes and has ruled out. Patient was seen br Dr Wong of cardiology in the chest pain center. Patient reports history of pig valve and has dental abscess. Patient will need admission and further workup for the abscess. I spoke with Dr Aragon, he requests blood cultures, ehco, and to consult her consignee. This has been ordered. he wants to hold off on antibiotics for now. Daniel Carreno August 29, 2017 11:13
[2017-08-29] MEDS: ACETAMINOPHEN/HYDROcodone 325 MG/5 MG TAB PO PRN ×3 (12:48→20:06)
--- NOTE | 2017-08-29 13:48 | EKG ---
Date Performed: 08/29/2017 Time Performed: 01:37:08 PTAGE: 37 years EKG: Sinus rhythm NONSPECIFIC T-WAVE ABNORMALITY BORDERLINE ECG PREVIOUS TRACING : 08/28/2017 22.03 Since previous tracing, no significant change noted DOCTOR: Manuel Wong Interpretating Date/Time 08/29/2017 13:47:07
--- NOTE | 2017-08-29 13:57 | EKG ---
Date Performed: 08/28/2017 Time Performed: 22:03:58 PTAGE: 37 years EKG: Sinus rhythm NORMAL ECG PREVIOUS TRACING : 08/28/2017 18.41 Since previous tracing, no significant change noted DOCTOR: Manuel Wong Interpretating Date/Time 08/29/2017 13:56:01
--- NOTE | 2017-08-29 13:58 | EKG ---
Date Performed: 08/28/2017 Time Performed: 18:41:37 PTAGE: 37 years EKG: Sinus rhythm MINIMAL VOLTAGE CRITERIA FOR LVH, CONSIDER NORMAL VARIANT BORDERLINE ECG INTERPRETATION BASED ON A D EFAULT AGE OF 38 YEARS PREVIOUS TRACING : 01/23/2017 22.28 Since previous tracing, no significant change noted DOCTOR: Manuel Wong Interpretating Date/Time 08/29/2017 13:57:20
[2017-08-29] MEDS ORDERED: Vancomycin Consult Pharmacy 1 EA OTHER SCH (15:00)
--- NOTE | 2017-08-29 15:56 | PD.CONS ---
History of Present Illness Service Infectious Disease Consult Requested By Dr Aragon Reason for Consult Evaluate patient with possible endocarditis Primary Care Physician Abelardo Carson MD Diagnoses: History of Present Illness Patient seen and examined. Records reviewed. Patient is a 37-year-old female, presented to the hospital complaining of 2 day history of chest pain, and 1 day history of shortness of breath. She has had prior history of endocarditis the last one was last year, and in 2014 she had episode of endocarditis as well as aortic valve replacement. Patient has polysubstance abuse but she denies ever injecting drugs. She has some cough but fairly dry. She had several episode of vomiting, but no abdominal pain. Denies any significant diarrhea or any urinary complaints. Her chest pain seems more constant, and not worsened by coughing or deep breathing. Patient stated that she has had tooth infection, but has not really had it taken care of. She had an episode of fever for 1 day. Patient presented to the hospital and has been admitted. Since admission she has not been febrile. Her WBC is normal. She was initially seen in the chest pain clinic, and [place] was ruled out. Infectious disease consultation has been requested to evaluate the patient for possible endocarditis. Review of Systems Constitutional: COMPLAINS OF: Fever, DENIES: Chills, Night Sweats Eyes: DENIES: Eye pain, Vision loss Ears, nose, mouth, throat: COMPLAINS OF: Toothache, DENIES: Oral lesions, Throat pain, Sinus Pain Respiratory: COMPLAINS OF: Cough, Shortness of breath, DENIES: Hemoptysis, Sputum production Cardiovascular: COMPLAINS OF: Chest pain, DENIES: Palpitations, Syncope, Dyspnea on Exertion Gastrointestinal: COMPLAINS OF: Nausea, Vomiting, DENIES: Abdominal pain, Diarrhea, Difficulty Swallowing, Anorexia Genitourinary: DENIES: Urgency, Dysuria Musculoskeletal: DENIES: Joint pain, Muscle aches, Joint Swelling Integumentary: DENIES: Rash Neurologic: DENIES: Headache, Localized weakness Psychiatric: DENIES: Depression, Hallucinations Past Family Social History Allergies: Coded Allergies: enoxaparin (Unverified Allergy, Severe, 08/28/17) KIDNEY FAILURE/BLEEDING heparin (porcine) (Unverified Allergy, Severe, 08/28/17) KIDNEY FAILURE/BLEEDING Past Medical History Endocarditis in 2014 Aortic valve replacement 2014 Endocarditis in 2017 in [place] hospitalized for 9 months Past Surgical History Aortic valve replacement 2014. Cardiac catheterization 2014 and states there were no blockages. Active Ordered Medications Current Medications Medications (Trade) Dose Ordered Sig/Malinda Route Start Time Stop Time Status Last Admin (NS Flush) 2 ml UNSCH PRN IV FLUSH 08/28/17 19:00 (Tylenol) 500 mg Q4H PRN PO 08/28/17 21:45 08/29/17 01:04 (Zofran Inj) 4 mg Q6H PRN IV PUSH 08/28/17 21:45 ([place] 5-325 Mg) 1 tab Q4H PRN PO 08/29/17 11:30 08/29/17 12:48 Pharmacy Profile Note 0 ml @ 0 mls/hr UNSCH OTHER 08/29/17 15:00 Cefepime HCl 1000 mg/Sodium Chloride 100 ml @ 200 mls/hr Q12H IV 08/29/17 16:00 Family History Noncontributory Social History Smokes 1 pack a series daily. Smokes marijuana 9 uses also cocaine. Denies IV drug use. States last time using marijuana cocaine was 4 days ago. States she has beer. Physical Exam Vital Signs Vital Signs Date Time Temp Pulse Resp B/P (MAP) Pulse Ox O2 Delivery O2 Flow Rate FiO2 08/29/17 13:48 22 08/29/17 13:05 98.0 71 18 113/71 (85) 97 08/29/17 11:30 73 08/29/17 07:08 97.9 76 18 113/78 (90) 97 08/29/17 05:08 21 08/29/17 02:04 15 08/29/17 01:59 79 08/29/17 01:29 98.1 88 18 108/57 (74) 92 08/28/17 23:09 97.8 84 18 124/58 (80) 97 08/28/17 21:21 90 16 144/59 (87) 98 Room Air 08/28/17 18:48 99 Room Air 08/28/17 18:45 89 19 152/83 (106) 99 Room Air 08/28/17 18:33 98.2 96 18 136/86 (103) 99 Physical Exam GENERAL: Patient is a well-nourished, well-developed female, awake and alert , not in respiratory distress. SKIN: Cool and dry. No generalized rash, no ecchymoses and no evidence of embolic lesions. HEAD: Atraumatic. Normocephalic. No temporal wasting, or tenderness. EYES: Piney conjunctiva. No petechia or hemorrhage. Pupils equal, round and reactive to light. Extraocular movements full and intact. No scleral icterus. No injection or drainage. EARS, NOSE AND THROAT: Nose without bleeding or purulent nasal discharge. No sinus tenderness. Mucous membranes pink and moist. No oral lesions noted. There is tenderness in R mandibular area, and and has some swelling in lower set of teeth. No exudate. No oral thrush. NECK: Trachea midline. Supple and not tender, no meningeal signs. Has some tender submandibular LN CARDIOVASCULAR: Regular rate and rhythm. Has loud systolic murmur at base of the heard, seems louders in the LSB. No rub heard RESPIRATORY: Clear to auscultation. Breath sounds equal bilaterally. No rales , wheezing or rhonchi ABDOMEN: Soft, non-tender, nondistended. Bowel sounds present and normoactive. No guarding. No rebound. No organomegaly. EXTREMITIES: No clubbing, cyanosis, or edema.No joint effusion, has good ROM. No calf tenderness. Well perfused and warm. NEUROLOGICAL: Awake and alert. Cranial nerves grossly intact. Motor grossly within normal limits. PSYCHIATRIC: Normal affect, calm and cooperative. LINE: No evidence of infection Laboratory Laboratory Tests Test 08/28/17 19:20 08/28/17 21:55 08/29/17 01:11 08/29/17 12:53 White Blood Count 4.9 Red Blood Count 4.67 Hemoglobin 13.7 Hematocrit 41.5 Mean Corpuscular Volume 88.8 Mean Corpuscular Hemoglobin 29.3 Mean Corpuscular Hemoglobin Concent 33.0 Red Cell Distribution Width 15.8 Platelet Count 165 Mean Platelet Volume 9.3 Neutrophils (%) (Auto) 53.7 Lymphocytes (%) (Auto) 35.3 Monocytes (%) (Auto) 9.3 Eosinophils (%) (Auto) 1.2 Basophils (%) (Auto) 0.5 Neutrophils # (Auto) 2.6 Lymphocytes # (Auto) 1.7 Monocytes # (Auto) 0.5 Eosinophils # (Auto) 0.1 Basophils # (Auto) 0.0 CBC Comment DIFF FINAL Differential Comment Prothrombin Time 10.3 Prothromb Time International Ratio 1.0 Activated Partial Thromboplast Time 27.5 D-Dimer Quantitative (PE/DVT) 0.21 Blood Urea Nitrogen 6 Creatinine 0.89 Random Glucose 72 Total Protein 8.2 Albumin 3.3 Calcium Level 8.9 Magnesium Level 1.7 Alkaline Phosphatase 77 Aspartate Amino Transf (AST/SGOT) 22 Alanine Aminotransferase (ALT/SGPT) 18 Total Bilirubin 0.3 Sodium Level 139 Potassium Level 3.6 Chloride Level 107 Carbon Dioxide Level 24.4 Anion Gap 8 Estimat Glomerular Filtration Rate 85 Total Creatine Kinase 183 148 134 Creatine Kinase MB 2.4 2.1 2.0 Troponin I LESS THAN 0.02 LESS THAN 0.02 LESS THAN 0.02 Lipase 67 Urine Opiates Screen NEG Urine Barbiturates Screen NEG Urine Amphetamines Screen NEG Urine Benzodiazepines Screen NEG Urine Cocaine Screen POS Urine Cannabinoids Screen POS Date/Time Source Procedure Growth Status 08/29/17 13:25 Blood Peripheral Aerobic Blood Culture Pending Received 08/29/17 13:25 Blood Peripheral Anaerobic Blood Culture Pending Received Result Diagram: 08/28/170 08/28/17 1920 Imaging RADIOLOGY STUDIES/FILMS REVIEWED Last Impressions Chest X-Ray 08/28/17 1851 Signed Impressions: Service Date/Time: Monday, August 28, 2017 19:17 - CONCLUSION: 1. Postoperative median sternotomy and aortic valve replacement. No acute findings. Miguel A Nair MD Assessment and Plan Assessment and Plan IMPRESSION Chest pain etiology, ?septic emboli to the lung Dental abscess Hx IE, 2017 and 2014 S/P AVR 2015 Known polysubstance abuse, but denies IVDU RECOMMENDATION Repeat BC CT chest - eval septic lung emboli Continue Vanco Add Clinda Stop Cefepime for now Get records from other hospital Follow C/S Monitor progress Will determine course of Abx once work-up is completed I will follow along with you Thank you for thsi consultation Marcela Ramírez MD August 29, 2017 15:56
[2017-08-29] MEDS ORDERED: CEFEPIME INJ 1,000 MG in SODIUM CHLORIDE 0.9% INJ 100 ML IV SCH (16:00)
[2017-08-29] MEDS: VANCOMYCIN 1,000 MG/NS 250 ML IV SCH ×2 (16:22)
--- NOTE | 2017-08-29 16:40 | ECHRPT ---
Indication: CHEST PAIN CONCLUSIONS Normal left ventricular size. Wall thickness is normal. The left ventricular systolic function is hyperdynamic with an estimated ejection fraction in the ra nge of 65- 70%. The left atrial size is rara-di-cktabupdqk dilated. The right atrial size is wgct-rm-iyrwyaigsk dilated. Mild thickening of the mitral valve leaflets. Pkay-xi-gujqxrvl mitral valve regurgitation. The aortic valve prosthesis is normal to two-dimensional, color flow and Doppler interrogation. Aortic valve mean gradient is 33.7 mmHg. There is mild to moderate tricuspid valve regurgitation. The estimated pulmonary arterial pressure is 43.4 mmHg. Moderate pulmonary valve regurgitation. BP: 113 / 71 HR: 71 Rhythm: Sinus MEASUREMENTS (Male / Female) Normal Values Technical Quality:Fair 2D ECHO LVOT Diameter 1.3 cm Aortic Root Diameter 2.5 cm M-MODE AV Cusp Separation MM 1.3 cm DOPPLER AV Peak Velocity 394.0 cm/s AV Peak Gradient 62.1 mmHg AV Mean Gradient 33.7 mmHg AV Velocity Time Integral 79.9 cm LVOT Peak Velocity 145.0 cm/s LVOT Peak Gradient 8.4 mmHg LVOT Velocity Time Integral 33.3 cm AV Area Cont Eq vti 0.6 cm AV Area Cont Eq pk 0.5 cm Mitral E Point Velocity 151.0 cm/s Mitral A Point Velocity 128.0 cm/s Mitral E to A Ratio 1.2 LV E' Lateral Velocity 10.1 cm/s Mitral E to LV E' Lateral Ratio 15.0 LV E' Septal Velocity 8.8 cm/s Mitral E to LV E' Septal Ratio 17.2 TR Peak Velocity 289.0 cm/s TR Peak Gradient 33.4 mmHg Right Atrial Pressure 10.0 mmHg Pulmonary Artery Systolic Pressu 43.4 mmHg Right Ventricular Systolic Press 43.4 mmHg PV Peak Velocity 61.7 cm/s PV Peak Gradient 1.5 mmHg FINDINGS LEFT VENTRICLE Normal left ventricular size. Wall thickness is normal. The left ventricular systolic function is hyperdynamic with an estimated ejection fraction in the ra nge of 65- 70%. RIGHT VENTRICLE Normal right ventricular size and systolic function. LEFT ATRIUM The left atrial size is itcl-nr-ljlhgkcycg dilated. RIGHT ATRIUM The right atrial size is mqio-pp-btgcaxqofr dilated. ATRIAL SEPTUM No atrial level shunt is demonstrated by color flow Doppler interrogation. AORTA The aortic root and proximal ascending aorta are not well visualized. MITRAL VALVE Mild thickening of the mitral valve leaflets. Mpnu-ox-ebhommjl mitral valve regurgitation. AORTIC VALVE The aortic valve prosthesis is normal to two-dimensional, color flow and Doppler interrogation. Aortic valve mean gradient is 33.7 mmHg. TRICUSPID VALVE There is mild to moderate tricuspid valve regurgitation. The estimated pulmonary arterial pressure is 43.4 mmHg. PULMONARY VALVE Moderate pulmonary valve regurgitation. VESSELS The inferior vena cava is normal in size. PERICARDIUM No pericardial effusion. Stevenson Berger MD, FACC, [facility] (Electronically Signed) Final Date:29 Aug 2017 16:39
[2017-08-29] MEDS ORDERED: VANCOMYCIN INJ 1,100 MG in SODIUM CHLOR 0.9% 250 ML INJ 250 ML IV SCH (17:00)
[2017-08-29] MEDS: CLINDAMYCIN 150 MG CAP PO SCH (17:22)
--- NOTE | 2017-08-29 17:25 | RADRPT ---
EXAM DATE/TIME: 08/29/2017 17:03 [place] COMPARISON: CHEST PA & LAT, August 28, 2017, 19:17. INDICATIONS : Septic emoli IV CONTRAST: 61 cc Omnipaque 350 (iohexol) IV RADIATION DOSE: 5.29 CTDIvol (mGy) MEDICAL HISTORY : Cardiovascular disease. Hypertension. Deep venous thrombosis.Diabetes SURGICAL HISTORY : Cardiac ENCOUNTER: Initial ACUITY: 2 days PAIN SCALE: 1/10 LOCATION: chest TECHNIQUE: Volumetric scanning of the chest was performed. Using automated exposure control and adjustment of t he mA and/or kV according to patient size, radiation dose was kept as low as reasonably achievable to obtain optimal diagnostic quality images. DICOM format image data is available electronically for review and comparison. Follow-up recommendations for detected pulmonary nodules are based at a minimum on nodule size and pa tient risk factors according to Fleischner Society Guidelines. FINDINGS: LUNGS: There is no consolidation or pneumothorax. No concerning pulmonary nodule is visualized. There is so me scattered areas of atelectasis in the posterior lower lungs bilaterally. PLEURA: There is no pleural thickening or pleural effusion. MEDIASTINUM: The heart and great vessels demonstrate no acute abnormality. There is no mediastinal or hilar lymph adenopathy. Evidence of a aortic valve in place. Evidence of previous cardiothoracic surgery. AXILLAE: Within normal limits. No lymphadenopathy. SKELETAL: Within normal limits for patient age. MISCELLANEOUS: The visualized upper abdominal organs demonstrate no acute abnormality. CONCLUSION: 1. Scattered areas of bibasilar atelectasis. 2. Status post aortic valve replacement. Felton Baeza MD on August 29, 2017 at 17:20 Board Certified Radiologist. This report was verified electronically.
[2017-08-30] VITALS (13 sets, daily range): BP systolic 111–142; BP diastolic 60–82; PULSE 69–92; RESP 16; TEMP 98–98.6; O2SAT 94–99
[2017-08-30] MEDS: CLINDAMYCIN 150 MG CAP PO SCH ×5 (00:09→23:55)
[2017-08-30] MEDS: ACETAMINOPHEN/HYDROcodone 325 MG/5 MG TAB PO PRN ×5 (00:10→21:44)
[2017-08-30] MEDS: VANCOMYCIN 1,000 MG/NS 250 ML IV SCH ×4 (05:42→17:01)
[2017-08-30 07:51] LABS: CREATININE 0.94 MG/DL (0.50-1.00)
--- NOTE | 2017-08-30 09:00 | HHI.PR ---
Subjective Remarks Follow up for chest pain, shortness of breath. The patient is sleeping upon my arrival and falls asleep intermittently throughout exam. She reports continued mild midsternal constant chest pain. She does reports mild shortness of breath and requesting nebulizer treatment for her asthma/COPD. She does continue to smoke tobacco. She has not yet attempted ambulation today. Denies fever but does report chills overnight. Denies any cough. Denies any other medical complaints at this time. Objective Vitals Vital Signs Date Time Temp Pulse Resp B/P (MAP) Pulse Ox O2 Delivery O2 Flow Rate FiO2 08/30/17 07:17 98.2 69 16 127/75 (92) 96 08/30/17 06:42 15 08/30/17 05:55 95 21 08/30/17 04:00 86 08/30/17 03:59 98.0 76 16 112/64 (80) 94 08/29/17 23:48 98.6 84 16 128/73 (91) 98 08/29/17 20:17 97.9 77 16 137/82 (100) 98 08/29/17 18:03 87 08/29/17 17:32 98.6 79 18 124/72 (89) 96 08/29/17 13:05 98.0 71 18 113/71 (85) 97 08/29/17 11:30 73 I/O 08/29/17 08/29/17 08/29/17 08/30/17 08/30/17 08/30/17 06:59 14:59 22:59 06:59 14:59 22:59 Intake Total 100 ml 250 ml Balance 100 ml 250 ml Intake IV Total 100 ml 250 ml # Voids 3 Result Diagram: 08/28/17 1920 08/30/17 0659 Imaging Last Impressions Chest CT 08/29/17 0000 Signed Impressions: Service Date/Time: Tuesday, August 29, 2017 17:03 - CONCLUSION: 1. Scattered areas of bibasilar atelectasis. 2. Status post aortic valve replacement. Felton Baeza MD Chest X-Ray 08/28/17 1851 Signed Impressions: Service Date/Time: Monday, August 28, 2017 19:17 - CONCLUSION: 1. Postoperative median sternotomy and aortic valve replacement. No acute findings. Miguel A Nair MD Objective Remarks GENERAL: Well-nourished, well-developed female patient in NAD. Drowsy. SKIN: Warm and dry. No rash. HEENT: Normocephalic. Atraumatic. Pupils equal and round. Mucous membranes pink and moist. Right mandibular TTP with edema. Right submandibular tender lymphadenopathy. CARDIOVASCULAR: Regular rate and rhythm. 3/6 systolic murmur noted. RESPIRATORY: No accessory muscle use. Clear to auscultation. Breath sounds equal bilaterally. GASTROINTESTINAL: Abdomen soft, non-tender, nondistended. Normoactive bowel sounds x4. MUSCULOSKELETAL: No obvious deformities. Extremities without clubbing, cyanosis , or edema. NEUROLOGICAL: Awake and alert. No obvious cranial nerve deficits. Motor grossly within normal limits. Normal speech. PSYCHIATRIC: Appropriate mood and affect; insight and judgment normal. Medications and IVs Current Medications Medications (Trade) Dose Ordered Sig/Malinda Route Start Time Stop Time Status Last Admin (NS Flush) 2 ml UNSCH PRN IV FLUSH 08/28/17 19:00 (Tylenol) 500 mg Q4H PRN PO 08/28/17 21:45 08/29/17 01:04 (Zofran Inj) 4 mg Q6H PRN IV PUSH 08/28/17 21:45 ([place] 5-325 Mg) 1 tab Q4H PRN PO 08/29/17 11:30 08/30/17 09:44 Pharmacy Profile Note 0 ml @ 0 mls/hr UNSCH OTHER 08/29/17 15:00 (Cleocin) 300 mg Q6HR PO 08/29/17 18:00 09/05/17 17:59 08/30/17 12:06 Vancomycin HCl 1000 mg/Sodium Chloride 250 ml @ 250 mls/hr Q12H IV 08/29/17 17:00 08/30/17 05:42 ([facility] [place] [facility] Ordered Lab Info) SPECIFIC LAB TO BE ... ONCE ONCE .XX 08/31/17 04:45 08/31/17 04:46 (Duoneb Neb) 1 ampule Q6HR NEB NEB 08/30/17 16:00 (Duoneb Neb) 1 ampule Q4HR NEB PRN NEB 08/30/17 12:30 A/P Assessment and Plan 37-year-old female with history of endocarditis in 2015 and 2016, s/p aortic valve replacement 2014, tobacco use, polysubstance use, presents with 2 day history of chest pain and shortness of breath Chest pain: unclear etiology. Hx of AVR 2014. Rule out ACS, recurrent endocarditis, possible septic emboli. Afebrile. No leukocytosis. D-dimer negative. -[facility], ACS ruled out with negative serial cardiac enzymes x3 -Chest CT with scattered bibasilar atelectasis, otherwise unremarkable -Echo 08/29 with normal EF 65-70%, mild-mod MR, normal aortic valve prosthesis , mild-mod TR, mod PA; no vegetations noted -Monitor on telemetry -Blood cultures with no growth x1day -Consulted ID, appreciate recommendations. -Continue antibiotics with IV Vanco (pharmacy consulted) and IV clinda -Obtain records from previous hospitalizations for endocarditis Dental abscess: acute -continue on Clindamycin 300mg po q6h x7days per ID -outpatient f/up with dentist/oral surgery Tobacco Use/polysubstance abuse: patient denies IVDU -UDS positive for cocaine and cannabinoids -field counsel on cessation -nicotine patch if needed Asthma/COPD: with +SOB, possibly contributing to above symptoms. -give duonebs q6h scheduled and q4h prn -monitor DVT Prophylaxis: teds/SCDs Discharge Planning Await blood culture results and ID clearance for discharge. Maisha Wyatt PA-C August 30, 2017 9:00 am
[2017-08-30] MEDS ORDERED: RESP: ALBUTEROL 2.5 MG/IPRATROPIUM 0.5 MG NEB (PRN) NEB (12:30)
[2017-08-30] MEDS: RESP: ALBUTEROL 2.5 MG/IPRATROPIUM 0.5 MG NEB (SCH) NEB ×2 (16:15→20:42)
[2017-08-31] VITALS (8 sets, daily range): BP systolic 106–138; BP diastolic 58–76; PULSE 76–99; RESP 16–20; TEMP 98.3–98.7; O2SAT 97–99
[2017-08-31] MEDS: ACETAMINOPHEN/HYDROcodone 325 MG/5 MG TAB PO PRN ×2 (03:13→09:26)
[2017-08-31] MEDS: RESP: ALBUTEROL 2.5 MG/IPRATROPIUM 0.5 MG NEB (SCH) NEB ×2 (03:43→08:44)
[2017-08-31] MEDS ORDERED: PHARMACY ORDERED LAB ONE (04:45)
[2017-08-31 05:26] LABS: CREATININE 0.99 MG/DL (0.50-1.00)
[2017-08-31] MEDS: VANCOMYCIN 1,000 MG/NS 250 ML IV SCH ×2 (05:36)
[2017-08-31] MEDS: CLINDAMYCIN 150 MG CAP PO SCH ×2 (05:45→13:33)
--- NOTE | 2017-08-31 08:52 | HHI.PR ---
Subjective Remarks Follow up for chest pain, dental abscess. The patient reports continued right jaw pain, requesting stronger pain medications. Denies fevers or chills. Chest pain is "ok" today. Denies shortness of breath. Denies any other medical complaints at this time. Objective Vitals Vital Signs Date Time Temp Pulse Resp B/P (MAP) Pulse Ox O2 Delivery O2 Flow Rate FiO2 08/31/17 08:45 98 21 08/31/17 07:31 98.7 87 18 119/72 (88) 97 08/31/17 04:27 98.4 90 16 138/76 (96) 97 08/31/17 04:18 84 08/30/17 23:49 89 08/30/17 23:43 98.6 88 16 113/60 (77) 99 08/30/17 20:16 77 08/30/17 19:45 98.2 83 16 142/82 (102) 98 08/30/17 17:18 92 08/30/17 14:56 98.0 82 16 111/66 (81) 95 08/30/17 12:13 98.0 70 16 119/64 (82) 97 08/30/17 12:01 79 I/O 08/30/17 08/30/17 08/30/17 08/31/17 08/31/17 08/31/17 07:00 15:00 23:00 07:00 15:00 23:00 Intake Total 250 ml 250 ml 1000 ml 250 ml Balance 250 ml 250 ml 1000 ml 250 ml Intake Oral 1000 ml IV Total 250 ml 250 ml 250 ml # Voids 2 # Bowel Movements 1 Result Diagram: 08/28/17 1920 08/31/17 0435 Imaging Last Impressions Chest CT 08/29/17 0000 Signed Impressions: Service Date/Time: Tuesday, August 29, 2017 17:03 - CONCLUSION: 1. Scattered areas of bibasilar atelectasis. 2. Status post aortic valve replacement. Felton Bazea MD Chest X-Ray 08/28/17 1851 Signed Impressions: Service Date/Time: Monday, August 28, 2017 19:17 - CONCLUSION: 1. Postoperative median sternotomy and aortic valve replacement. No acute findings. Miguel A Nair MD Objective Remarks GENERAL: Well-nourished, well-developed female patient in NAD. Sleeping upon my arrival. SKIN: Warm and dry. No rash. HEENT: Normocephalic. Atraumatic. Pupils equal and round. Mucous membranes pink and moist. Right mandibular TTP with mild edema. CARDIOVASCULAR: Regular rate and rhythm. 3/6 systolic murmur noted. RESPIRATORY: No accessory muscle use. Clear to auscultation. Breath sounds equal bilaterally. GASTROINTESTINAL: Abdomen soft, non-tender, nondistended. Normoactive bowel sounds x4. MUSCULOSKELETAL: No obvious deformities. Extremities without clubbing, cyanosis , or edema. NEUROLOGICAL: Awake and alert. No obvious cranial nerve deficits. Motor grossly within normal limits. Normal speech. PSYCHIATRIC: Appropriate mood and affect; insight and judgment normal. Procedures None. Medications and IVs Current Medications Medications (Trade) Dose Ordered Sig/Malinda Route Start Time Stop Time Status Last Admin (NS Flush) 2 ml UNSCH PRN IV FLUSH 08/28/17 19:00 (Tylenol) 500 mg Q4H PRN PO 08/28/17 21:45 08/29/17 01:04 (Zofran Inj) 4 mg Q6H PRN IV PUSH 08/28/17 21:45 ([place] 5-325 Mg) 1 tab Q4H PRN PO 08/29/17 11:30 08/31/17 09:26 Pharmacy Profile Note 0 ml @ 0 mls/hr UNSCH OTHER 08/29/17 15:00 (Cleocin) 300 mg Q6HR PO 08/29/17 18:00 09/05/17 17:59 08/31/17 05:45 (Duoneb Neb) 1 ampule Q6HR NEB NEB 08/30/17 16:00 08/31/17 08:44 (Duoneb Neb) 1 ampule Q4HR NEB PRN NEB 08/30/17 12:30 (Toradol Inj) 15 mg Q6H PRN IV PUSH 08/31/17 09:30 09/05/17 09:29 Vancomycin HCl 1250 mg/Sodium Chloride 262.5 ml @ 250 mls/hr Q12H IV 08/31/17 17:00 ([facility] Ordered Lab Info) SPECIFIC LAB TO BE ... ONCE ONCE .XX 09/02/17 04:45 09/02/17 04:46 A/P Assessment and Plan 37-year-old female with history of endocarditis in 2014 and 2017, s/p aortic valve replacement 2015, tobacco use, polysubstance use, presents with 2 day history of chest pain and shortness of breath Chest pain: unclear etiology. Hx of AVR 2015. Rule out ACS, recurrent endocarditis, possible septic emboli. Afebrile. No leukocytosis. D-dimer negative. -[facility] by [facility], ACS ruled out with negative serial cardiac enzymes x3 -Chest CT with scattered bibasilar atelectasis, otherwise unremarkable -Echo 08/29 with normal EF 65-70%, mild-mod MR, normal aortic valve prosthesis , mild-mod TR, mod VT; no vegetations noted -Monitor on telemetry -Blood cultures with no growth x1day -Consulted ID, appreciate recommendations. -Continue antibiotics with IV Vanco (pharmacy consulted) and po clinda -Obtain records from previous hospitalizations for endocarditis -Pain control with norco prn and IV toradol prn -Symptoms improving, await further ID recommendations Dental abscess: acute -continue on Clindamycin 300mg po q6h x7days per ID -outpatient f/up with dentist/oral surgery Tobacco Use/polysubstance abuse: patient denies IVDU -UDS positive for cocaine and cannabinoids -insurance counsel on cessation -nicotine patch if needed Asthma/COPD: with +SOB, possibly contributing to above symptoms. -give duonebs q6h scheduled and q4h prn -monitor DVT Prophylaxis: teds/SCDs Discharge Planning Await final blood culture results and ID clearance for discharge. Maisha Wyatt PA-C August 31, 2017 8:52 am
[2017-08-31] MEDS ORDERED: KETOROLAC TROMETHAMINE 30 MG/ML (IVP) VIAL IV PUSH PRN (09:30)
[2017-08-31] MEDS ORDERED: IBUP-232 PO (12:09)
[2017-08-31] MEDS ORDERED: CLIN150 PO (12:09)
--- NOTE | 2017-08-31 12:10 | HHI.DCPOC ---
Discharge Care Plan Diagnosis: (1) Dental abscess (2) Atypical chest pain Goals to Promote Your Health * To prevent worsening of your condition and complications * To maintain your health at the optimal level Directions to Meet Your Goals Take your medications as prescribed Follow your dietary instruction Follow activity as directed Keep your appointments as scheduled Take your immunizations and boosters as scheduled If your symptoms worsen call your PCP, if no PCP go to Urgent Care Center or Emergency Room Smoking is Dangerous to Your Health. Avoid second hand smoke Call the 24-hour hour crisis hotline for domestic abuse at Maisha Wyatt PA-C August 31, 2017 12:10
--- NOTE | 2017-08-31 12:18 | HHI.IDPN ---
Subjective Subjective Remarks Patient is a 37-year-old female, presented to the hospital complaining of 2 day history of chest pain, and 1 day history of shortness of breath. She has had prior history of endocarditis the last one was last year, and in 2014 she had episode of endocarditis as well as aortic valve replacement. Patient has polysubstance abuse but she denies ever injecting drugs. She has some cough but fairly dry. She had several episode of vomiting, but no abdominal pain. Denies any significant diarrhea or any urinary complaints. Her chest pain seems more constant, and not worsened by coughing or deep breathing. Patient stated that she has had tooth infection, but has not really had it taken care of. She had an episode of fever for 1 day. Patient presented to the hospital and has been admitted. Since admission she has not been febrile. Her WBC is normal. She was initially seen in the chest pain clinic, and MA was ruled out. Infectious disease consultation has been requested to evaluate the patient for possible endocarditis. Notes reviewed C/O toothache CP better Ct chest no evidence of septic emboli BC negative Afebrile WBC normal Antibiotics Current Medications Medications (Trade) Dose Ordered Sig/Malinda Route Start Time Stop Time Status Last Admin (NS Flush) 2 ml UNSCH PRN IV FLUSH 08/28/17 19:00 (Tylenol) 500 mg Q4H PRN PO 08/28/17 21:45 08/29/17 01:04 (Zofran Inj) 4 mg Q6H PRN IV PUSH 08/28/17 21:45 ([place] 5-325 Mg) 1 tab Q4H PRN PO 08/29/17 11:30 08/31/17 09:26 Pharmacy Profile Note 0 ml @ 0 mls/hr UNSCH OTHER 08/29/17 15:00 (Cleocin) 300 mg Q6HR PO 08/29/17 18:00 09/05/17 17:59 08/31/17 05:45 (Duoneb Neb) 1 ampule Q6HR NEB NEB 08/30/17 16:00 08/31/17 08:44 (Duoneb Neb) 1 ampule Q4HR NEB PRN NEB 08/30/17 12:30 (Toradol Inj) 15 mg Q6H PRN IV PUSH 08/31/17 09:30 09/05/17 09:29 Vancomycin HCl 1250 mg/Sodium Chloride 262.5 ml @ 250 mls/hr Q12H IV 08/31/17 17:00 [place] [place] Info) SPECIFIC LAB TO BE ... ONCE ONCE .XX 09/02/17 04:45 09/02/17 04:46 Lines Line with no evid of infection Past Medical History Endocarditis in 2014 Aortic valve replacement 2014 Endocarditis in 2017 in [place] hospitalized for 9 months Past Surgical History Aortic valve replacement 2014. Cardiac catheterization 2014 and states there were no blockages. Allergies: Coded Allergies: enoxaparin (Unverified Allergy, Severe, 08/28/17) KIDNEY FAILURE/BLEEDING heparin (porcine) (Unverified Allergy, Severe, 08/28/17) KIDNEY FAILURE/BLEEDING Objective . Vital Signs Date Time Temp Pulse Resp B/P (MAP) Pulse Ox O2 Delivery O2 Flow Rate FiO2 08/31/17 12:02 98.5 93 20 112/58 (76) 98 08/31/17 08:45 98 21 08/31/17 07:31 98.7 87 18 119/72 (88) 97 08/31/17 04:27 98.4 90 16 138/76 (96) 97 08/31/17 04:18 84 08/30/17 23:49 89 08/30/17 23:43 98.6 88 16 113/60 (77) 99 08/30/17 20:16 77 08/30/17 19:45 98.2 83 16 142/82 (102) 98 08/30/17 17:18 92 08/30/17 14:56 98.0 82 16 111/66 (81) 95 08/31/17 08/31/17 09/01/17 15:00 23:00 07:00 Intake Total 250 ml Balance 250 ml IV Total 250 ml . Laboratory Tests Test 08/30/17 06:59 08/31/17 04:35 Creatinine 0.94 MG/DL 0.99 MG/DL Estimat Glomerular Filtration Rate 80 ML/MIN 76 ML/MIN Microbiology Date/Time Source Procedure Growth Status 08/30/17 07:08 Blood Peripheral Aerobic Blood Culture - Preliminary NO GROWTH IN 1 DAY Resulted 08/30/17 07:08 Blood Peripheral Anaerobic Blood Culture - Preliminary NO GROWTH IN 1 DAY Resulted 08/30/17 06:59 Blood Peripheral Aerobic Blood Culture - Preliminary NO GROWTH IN 1 DAY Resulted 08/30/17 06:59 Blood Peripheral Anaerobic Blood Culture - Preliminary NO GROWTH IN 1 DAY Resulted 08/29/17 13:25 Blood Peripheral Aerobic Blood Culture - Preliminary NO GROWTH IN 2 DAYS Resulted 08/29/17 13:25 Blood Peripheral Anaerobic Blood Culture - Preliminary NO GROWTH IN 2 DAYS Resulted 08/29/17 13:19 Blood Peripheral Aerobic Blood Culture - Preliminary NO GROWTH IN 2 DAYS Resulted 08/29/17 13:19 Blood Peripheral Anaerobic Blood Culture - Preliminary NO GROWTH IN 2 DAYS Resulted Imaging Last Impressions Chest CT 08/29/17 0000 Signed Impressions: Service Date/Time: Tuesday, August 29, 2017 17:03 - CONCLUSION: 1. Scattered areas of bibasilar atelectasis. 2. Status post aortic valve replacement. Felton Baeza MD Chest X-Ray 08/28/17 1851 Signed Impressions: Service Date/Time: Monday, August 28, 2017 19:17 - CONCLUSION: 1. Postoperative median sternotomy and aortic valve replacement. No acute findings. Miguel A Nair MD Physical Exam GENERAL: awake and alert, not in respiratory distress. SKIN: Cool and dry. No generalized rash, no ecchymoses and no evidence of embolic lesions. HEAD: Atraumatic. Normocephalic. No temporal wasting, or tenderness. EYES: [place] conjunctiva. No petechia or hemorrhage. Pupils equal, round and reactive to light. Extraocular movements full and intact. No scleral icterus. No injection or drainage. EARS, NOSE AND THROAT: Nose without bleeding or purulent nasal discharge. No sinus tenderness. Mucous membranes pink and moist. No oral lesions noted. There is tenderness in R mandibular area. No exudate. No oral thrush. NECK: Trachea midline. Supple and not tender, no meningeal signs. Has some tender submandibular LN CARDIOVASCULAR: Regular rate and rhythm. Has loud systolic murmur at base of the heard, seems louders in the LSB. No rub heard RESPIRATORY: Clear to auscultation. Breath sounds equal bilaterally. No rales , wheezing or rhonchi ABDOMEN: Soft, non-tender, nondistended. Bowel sounds present and normoactive. No guarding. No rebound. No organomegaly. EXTREMITIES: No clubbing, cyanosis, or edema.No joint effusion, has good ROM. No calf tenderness. Well perfused and warm. NEUROLOGICAL: Awake and alert. Cranial nerves grossly intact. Motor grossly within normal limits. PSYCHIATRIC: Normal affect, calm and cooperative. LINE: No evidence of infection Assessment & Plan Remarks IMPRESSION Chest pain etiology, resolving Dental abscess Hx IE, 2016 and 2014 S/P AVR 2015 Known polysubstance abuse, but denies IVDU RECOMMENDATION Stop Vanco Clinda x 7 more days on D/C Follow-up with her dentist OK to D/C from ID standpoint D/W Marcela Solomon MD August 31, 2017 12:18
[2017-08-31] MEDS ORDERED: VANCOMYCIN INJ 1,250 MG in SODIUM CHLOR 0.9% 250 ML INJ 250 ML IV SCH (17:00)
--- NOTE | 2017-08-31 18:34 | HHI.DS ---
Discharge Summary Admission Date August 28, 2017 at 21:41 Discharge Date: August 31, 2017 Admitting Diagnosis Chest pain r/o ACS, h/o cocaine use (1) Atypical chest pain ICD Code: R07.89 - Other chest pain Diagnosis: Principal Status: Acute (2) Dental abscess ICD Code: K04.7 - Periapical abscess without sinus Diagnosis: Secondary Procedures None. Brief History - [facility] H&P Upon Admission: This is a 37-year-old female that presents to ED via private vehicle with history of endocarditis, aortic valve replacement 2014 and endocarditis a year ago while in [place] and was hospitalized for 9 months at that visit. States she returned from [place] 2 weeks ago and began having a burning sensation across her chest 2 days ago. It was constantly there for about 16 hours with shortness of breath and nausea. No diaphoresis. Found nothing to worsen or improve. Pain is rated as a 10 out of 10. Patient stops me several times during this interview to explain to me that she has a right lower dental pain and thinks she has an abscess. States she had a fever a week ago. 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 Followed by cardiology, states she sees Dr. Anthony and was last seen about 8 months ago. States she had a heart catheterization prior to her aortic valve replacement and that she was not told of any blockages. Currently denies chest discomfort. CBC/BMP: 08/28/17 1920 08/31/17 0435 Significant Findings Laboratory Tests Test 08/28/17 19:20 08/28/17 21:55 08/29/17 01:11 08/29/17 12:53 Monocytes (%) (Auto) 9.3 % (0.0-8.0) Blood Urea Nitrogen 6 MG/DL (7-18) Random Glucose 72 MG/DL (74-106) Albumin 3.3 GM/DL (3.4-5.0) Estimat Glomerular Filtration Rate 85 ML/MIN (>89) Troponin I LESS THAN 0.02 NG/ML LESS THAN 0.02 NG/ML LESS THAN 0.02 NG/ML Lipase 67 U/L (73-393) Urine Cocaine Screen POS (NEG) Urine Cannabinoids Screen POS (NEG) Test 08/30/17 06:59 08/31/17 04:35 08/31/17 04:45 Estimat Glomerular Filtration Rate 80 ML/MIN (>89) 76 ML/MIN (>89) Vancomycin Level Trough 11.2 MCG/ML (5.0-10.0) Imaging Last Impressions Chest CT 08/29/17 0000 Signed Impressions: Service Date/Time: Tuesday, August 29, 2017 17:03 - CONCLUSION: 1. Scattered areas of bibasilar atelectasis. 2. Status post aortic valve replacement. Felton Baeza MD Chest X-Ray 08/28/17 185 Signed Impressions: Service Date/Time: Monday, August 28, 2017 19:17 - CONCLUSION: 1. Postoperative median sternotomy and aortic valve replacement. No acute findings. Miguel A Nair MD PE at Discharge GENERAL: Well-nourished, well-developed female patient in [facility]. Sleeping upon my arrival. SKIN: Warm and dry. No rash. HEENT: Normocephalic. Atraumatic. Pupils equal and round. Mucous membranes pink and moist. Right mandibular TTP with minimal edema. CARDIOVASCULAR: Regular rate and rhythm. 3/6 systolic murmur noted. RESPIRATORY: No accessory muscle use. Clear to auscultation. Breath sounds equal bilaterally. GASTROINTESTINAL: Abdomen soft, non-tender, nondistended. Normoactive bowel sounds x4. MUSCULOSKELETAL: No obvious deformities. Extremities without clubbing, cyanosis , or edema. NEUROLOGICAL: Awake and alert. No obvious cranial nerve deficits. Motor grossly within normal limits. Normal speech. PSYCHIATRIC: Appropriate mood and affect; insight and judgment normal. Hospital Course 37-year-old female with history of endocarditis in 2014 and 2016, s/p aortic valve replacement 2014, tobacco use, polysubstance use, presents with 2 day history of chest pain and shortness of breath Chest pain: unclear etiology. Hx of AVR 2014. Initially admitted to [facility], ruled out ACS; concerned for recurrent endocarditis, possible septic emboli. Afebrile. No leukocytosis. D-dimer negative. S/p eval by [facility], ACS ruled out with negative serial cardiac enzymes x3. Chest CT with scattered bibasilar atelectasis, otherwise unremarkable; no emboli. Echo 08/29 with normal EF 65-70%, mild-mod MR, normal aortic valve prosthesis, mild-mod TR, mod VT; no vegetations noted. Blood cultures with no growth x2days. ID consulted and following. Given antibiotics with IV Vanco (pharmacy consulted) and po clinda for dental abscess. Pain control with norco prn and IV toradol prn. Symptoms improved. Blood cultures with NGTD. Cleared for discharge by ID, discussed with Dr. Ramírez. Dental abscess: acute. Continue on Clindamycin 300mg po q6h x7days per ID. Strongly encouraged outpatient f/up with dentist/oral surgery abel upon discharge. Case management filled clindamycin prescription prior to discharge. Tobacco Use/polysubstance abuse: patient denies IVDU. 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 Asthma/COPD: with +SOB, possibly contributing to above symptoms. Given duonebs q6h scheduled and q4h prn. Symptoms improved, stable. Questionable Drug Seeking Behavior: exam of dental abscess not impressive. Patient heavily sleeping upon most of my examinations. Patient multiple times requesting IV pain medications from different providers and nurses. At one point patient threatening to leave AMA if does not receive IV pain medications. Nurses report patient will request norco and then patient asleep when they go to give the medication to her. Will not provide narcotic prescriptions at discharge. Pt Condition on Discharge: Stable Discharge Disposition: Discharge Home Discharge Time: <= 30 minutes Discharge Instructions DIET: Follow Instructions for: As Tolerated, No Restrictions Activities you can perform: Regular-No Restrictions Follow up Referrals: Dental - 2-3 Days PCP Follow-up - 1 Week with Abelardo Carson MD New Medications: Clindamycin (Cleocin) 150 Mg Cap 300 MG PO Q6HR for Infection for 7 Days, #28 CAP Continued Medications: Albuterol Neb (Albuterol Neb) 0.63 Mg/3 Ml Neb 0.63 MG NEB Q3D PRN for SHORTNESS OF BREATH, #25 NEBULE 0 Refills Ibuprofen (Ibuprofen) 600 Mg Tab 600 MG PO Q8H PRN for PAIN, #20 TAB 0 Refills (This prescription has been renewed) Discontinued Medications: Metronidazole (Flagyl) 500 Mg Tab 500 MG PO BID for Infection, #14 TAB 0 Refills [Heart Rate Med] () Maisha Wyatt PA-C August 31, 2017 6:34 pm
[2017-09-02] MEDS ORDERED: PHARMACY ORDERED LAB ONE (04:45)
== END 2017-08-31 18:22 | disposition home or self-care (01) ==
LOC: NEPC 18:29 → NEDA 21:41 → NEPGCP 22:54
PROVIDERS: ADMIT Hospitalist; ATTEND Hospitalist
DX: R07.89 Other chest pain (principal); K04.7 Periapical abscess without sinus; R06.02 Shortness of breath; R11.2 Nausea with vomiting, unspecified; I10 Essential (primary) hypertension; J44.9 Chronic obstructive pulmonary disease, unspecified; F14.90 Cocaine use, unspecified, uncomplicated; F12.90 Cannabis use, unspecified, uncomplicated; F17.210 Nicotine dependence, cigarettes, uncomplicated; Z95.2 Presence of prosthetic heart valve; I38 Endocarditis, valve unspecified; F41.9 Anxiety disorder, unspecified; F32.9 Major depressive disorder, single episode, unspecified; G43.909 Migraine, unspecified, not intractable, without status migrainosus; Z79.01 Long term (current) use of anticoagulants; Z85.41 Personal history of malignant neoplasm of cervix uteri; Z82.49 Family history of ischemic heart disease and other diseases of the circulatory system
CPT/HCPCS: 71046; 71260; 80053; 80202; 80307; 82550; 82552; 82565; 83690; 83735; 84484; 84703; 85025; 85379; 85610; 85730; 87040; 93005; 93306; 94640; 94664; 96361; 96365; 96366; 96367; 96375; 99285; G0378; J0692; J2270; J2405; J3370; J7030; J7050; Q9967